=== PATIENT | female | born 1990 | race Caucasian/White ===

== ENCOUNTER 2019-04-26 04:04 | Inpatient (IN) ==
[2019-04-26] MEDS: LACTATED RINGERS 1,000 ML IV SCH ×2 (04:20→05:16)
[2019-04-26] MEDS ORDERED: BUTORPHANOL 2 MG/ML VIAL IV PRN (04:27)
[2019-04-26] MEDS ORDERED: LACTATED RINGERS 500 ML IV PRN (04:27)
[2019-04-26] MEDS ORDERED: MEPERIDINE 50 MG/1 ML VIAL IV PRN (04:27)
[2019-04-26] MEDS ORDERED: ONDANSETRON 4 MG/2 ML VIAL IV PRN ×2 (04:27→11:13)
[2019-04-26] MEDS ORDERED: FAMOTIDINE 20 MG/2 ML VIAL IV SCH (04:30)
[2019-04-26] MEDS ORDERED: CITRIC ACID/SODIUM CITRATE 30 ML UDCUP PO ONE (04:34)
[2019-04-26] MEDS ORDERED: PROMETHAZINE 25 MG/1 ML VIAL IM ONE (04:35)
[2019-04-26] MEDS ORDERED: hydrOXYzine HCL 25 MG/1 ML VIAL IM PRN (04:35)
[2019-04-26] MEDS ORDERED: LACTATED RINGERS 250 ML IV PRN (04:35)
[2019-04-26] MEDS ORDERED: diphenhydrAMINE 50 MG/1 ML VIAL IV PRN ×2 (04:35)
[2019-04-26] MEDS ORDERED: ONDANSETRON 4 MG/2 ML VIAL IV ONE (04:35)
[2019-04-26] MEDS ORDERED: NALOXONE 0.4 MG/ML VIAL IV PRN (04:35)
[2019-04-26] MEDS ORDERED: ePHEDrine 50 MG/ML AMP IV PRN (04:35)
[2019-04-26] MEDS ORDERED: CARBOPROST TROMETHAMINE 250 MCG/ML AMP IM ONE (04:42)
[2019-04-26] MEDS ORDERED: miSOPROStoL 200 MCG TABLET ONE (04:42)
[2019-04-26] MEDS ORDERED: METHYLERGONOVINE 0.2 MG/1 ML AMP ONE (04:42)
[2019-04-26] MEDS ORDERED: OXYTOCIN/LR 20 UNIT/1,000 ML BAG IV ONE ×3 (04:42→11:13)
[2019-04-26 04:54] LABS: Basophils # 0.1 10*3/uL (0.0-0.2); Basophils % 0.4 % (0.0-0.8); Eosinophils # 0.1 10*3/uL (0.0-0.87); Eosinophils % 0.6 % (0.00-10.9); Hematocrit 40.3 VOL% (35.7-47.0); Hemoglobin 13.4 GM/DL (12.0-16.0); Immature Granulocytes % 0.5 %; Immature Granulocytes Absolute 0.06 #; Lymphocytes # 2.4 10*3/uL (1.4-4.0); Lymphocytes % 19.9 % (21.3-54.2); Mean Corpuscular HGB Conc 33.3 GM/DL (32-36); Mean Corpuscular Volume 84.3 FL (87-102); Mean Platelet Volume 11.8 FL (9.6-12.0); Monocytes % 7.2 % (1.7-12.7); Neutrophils % 71.4 % (38.7-73.9); Platelet Count 184 T/CUMM (130-400); Red Blood Count 4.78 MC/CUMM (3.8-5.5); Red Cell Distribution Width 14.8 % (9.3-17.3); White Blood Count 12.1 T/CUMM (4-12)
[2019-04-26] MEDS ORDERED: fentaNYL 2 MCG/ROPIV 0.2% EPID 100 ML EPIDURAL SCH (05:00)
[2019-04-26 07:26] LABS: Apearance,Urine CLEAR (Clear); Bacteria,Urine Occasional /HPF (Few); Bilirubin,Urine Negative (Negative); Blood, Urine Negative (Negative); Glucose,Urine (UA) Negative (Negative); Ketones,Urine 20 mg/dL (Negative); Mucus,Urine Occasional /LPF (Occasional); Nitrite,Urine Negative (Negative); Protein,Urine Negative; RBC,Urine 1 /HPF (0-4); Squamous Epithelial Cell,Urine Occasional /HPF (0-10); Urine Color Yellow (Yellow); Urine Specific Gravity 1.009 (1.001-1.035); Urine Urobilinogen < 2.0 EU/DL (0.2-1.0); WBC,Urine <1 /HPF (0-6)
[2019-04-26] MEDS ORDERED: ACETAMINOPHEN 325 MG TABLET PO PRN (11:13)
[2019-04-26] MEDS ORDERED: MEASLES/MUMPS/RUBELLA VACCINE 0.5 ML VIAL SUBCUT ONE (11:13)
[2019-04-26] MEDS ORDERED: BISACODYL 10 MG SUPP RECTAL PRN (11:13)
[2019-04-26] MEDS ORDERED: DIPH/TET/ACEL PERT BOOSTER VACCINE 0.5 ML VIAL IM ONE (11:13)
[2019-04-26] MEDS ORDERED: HYDROCORTISONE 2.5% RECTAL CREAM 30 GM TUBE TOP PRN (11:13)
[2019-04-26] MEDS ORDERED: WITCH HAZEL PADS 100/JAR TOP PRN (11:13)
[2019-04-26] MEDS ORDERED: RHO(D) IMMUNE GLOBULIN 300 MCG SYRINGE IM ONE (11:13)
[2019-04-26] MEDS ORDERED: LANOLIN 50% CREAM 0.3 OZ TUBE TOP PRN (11:13)
[2019-04-26] MEDS ORDERED: BENZOCAINE 20%/MENTHOL 0.5% SPRAY 56 GM CAN TOP PRN (11:13)
[2019-04-26] MEDS ORDERED: oxyCODONE/ACETAMINOPHEN 5-325 MG TABLET PO PRN ×2 (11:13)
[2019-04-26] MEDS: IBUPROFEN 800 MG TABLET PO PRN (15:08)
[2019-04-26] MEDS: DOCUSATE SODIUM 100 MG CAPSULE PO SCH (21:26)
[2019-04-27] MEDS: IBUPROFEN 800 MG TABLET PO PRN ×4 (02:35→23:20)
[2019-04-27 04:59] LABS: Hematocrit 27.4 VOL% (35.7-47.0); Red Blood Count 3.15 MC/CUMM (3.8-5.5); White Blood Count 13.1 T/CUMM (4-12)
[2019-04-27 05:00] LABS: Basophils % 0.3 % (0.0-0.8); Eosinophils # 0.1 10*3/uL (0.0-0.87); Immature Granulocytes % 0.5 %; Immature Granulocytes Absolute 0.07 #; Lymphocytes # 3.5 10*3/uL (1.4-4.0); Lymphocytes % 26.5 % (21.3-54.2); Mean Corpuscular HGB Conc 32.8 GM/DL (32-36); Mean Platelet Volume 11.2 FL (9.6-12.0); Monocytes % 6.9 % (1.7-12.7); Neutrophils % 64.8 % (38.7-73.9); Platelet Count 136 T/CUMM (130-400)
[2019-04-27] MEDS: DOCUSATE SODIUM 100 MG CAPSULE PO SCH ×2 (09:46→21:09)
[2019-04-27] MEDS: FERROUS SULFATE 325 MG TABLET PO SCH ×3 (09:47→21:09)
[2019-04-28] MEDS: IBUPROFEN 800 MG TABLET PO PRN (06:29)
[2019-04-28] MEDS: DOCUSATE SODIUM 100 MG CAPSULE PO SCH (09:14)
[2019-04-28] MEDS: FERROUS SULFATE 325 MG TABLET PO SCH (09:15)
[2019-04-28 11:29] VITALS: BP 115/72
== END 2019-04-28 14:00 | disposition home or self-care (01) | DRG 807 ==
LOC: N.LDOUT 04:04 → N.LD 04:06 → N.OB 12:46
PROVIDERS: ADMIT Obstetrics & Gynecology; ATTEND Obstetrics & Gynecology